=== PATIENT | female | born 1965 | race Caucasian/White ===

== ENCOUNTER 2020-09-22 13:26 | Emergency (ER) | payer OTHER, MEDICAID ==
[~2020-09-22] VITALS: Ht 180.3 cm; Wt 68.0 kg
[2020-09-22 13:37] VITALS: BP_SYST 149
[2020-09-22] MEDS ORDERED: IV NORMAL SALINE 1,000ML 1,000 ML IV ONE (14:00)
[2020-09-22] MEDS ORDERED: CONTRAST GIVEN. MC PRN (14:15)
[2020-09-22] MEDS ORDERED: IOHEXOL 300 MG/ML 75 ML VIAL. IV ONE (14:15)
[2020-09-22 14:22] LABS: BASO % 0 % (0-3); EOS # 0.1 x10^3/uL (0.0-0.7); EOS % 1 % (0-3); HEMATOCRIT 37.6 % (36.0-47.0); HEMOGLOBIN 12.6 g/dL (12.0-15.5); LYMPH # 0.8 x10^3/uL (1.0-4.8); LYMPH % 9 % (24-48); MEAN CORPUSCULAR HEMOGLOBIN 33 pg (25-35); MEAN CORPUSCULAR HGB CONC 33 g/dL (31-37); MEAN CORPUSCULAR VOLUME 98 fL (79-100); MONO # 1.2 x10^3/uL (0.0-1.1); MONO % 13 % (0-9); NEUT # 7.1 x10^3uL (1.8-7.7); NEUT % 77 % (31-73); PLATELET COUNT 174 x10^3/uL (140-400); RED BLOOD COUNT 3.83 x10^6/uL (3.50-5.40); RED CELL DISTRIBUTION WIDTH 14.1 % (11.5-14.5); WHITE BLOOD COUNT 9.1 x10^3/uL (4.0-11.0)
[2020-09-22 14:31] LABS: CREATININE 1.3 mg/dL (0.6-1.0); GFR 42.8; POTASSIUM 3.8 mmol/L (3.5-5.1)
[2020-09-22 14:37] LABS: ALBUMIN 2.6 g/dL (3.4-5.0); ALBUMIN/GLOBULIN RATIO 0.5 (1.0-1.7); TOTAL BILIRUBIN 0.4 mg/dL (0.2-1.0); TOTAL PROTEIN 7.5 g/dL (6.4-8.2)
--- NOTE | 2020-09-22 14:54 | RAD ---
EXAM: Neck, chest, abdomen and pelvis CT with intravenous contrast. HISTORY: Neck pain. TECHNIQUE: Computed tomographic images of the neck, chest, abdomen and pelvis were obtained following the administration of intravenous contrast. Multiplanar reformatting was performed. *One or more of the following individualized dose reduction techniques were utilized for this examina tion: 1. Automated exposure control. 2. Adjustment of the mA and/or kV according to patient size. 3. Use of iterative reconstruction technique. COMPARISON: None. FINDINGS: Neck: There is a centrally necrotic mass within the left anterior lateral neck lateral to the common carotid artery measuring 4.0 cm in maximum dimension. There are a few nonspecific stranding cervical chain lymph nodes. The right submandibular gland is absent or nearly completely absent. There is calc ified atherosclerotic plaque involving the left carotid bulb, bilateral internal carotid arteries and right external carotid artery. This results in less than 50 percent stenosis. No thyroid nodule is s een. There is a right chest wall port catheter with the tip in the right atrium. There are metallic c lips are fiducials within the left thoracic inlet. There is a left apical mass or masslike consolidat ion with small amount of loculated pleural fluid measuring approximately 5.6 cm. This demonstrates sp iculated margins and surrounding groundglass and internal cystic or bronchiectatic changes. There are degenerative changes involving the cervical spine. This is associated with mild left foraminal steno sis at C3-C4 and mild right and moderate left foraminal stenosis at C5-C6. Chest: There is left hemithorax volume loss. There is aortic and aortic branch vessel atherosclerosis . The heart is normal in size. There are enlarged mediastinal lymph nodes. For reference purposes, th ere are precarinal lymph nodes measuring up to 1.5 cm. There is no pneumothorax. There is a 5.6 cm ma ss or masslike consolidation involving the anterior lateral right lower lobe. There is a similar-appe aring mass or masslike consolidation measuring 5.6 cm within the medial right middle lobe. There are additional multiple scattered pulmonary nodules and groundglass opacities, several which are spiculat ed. There is no suspicious osseous lesion. Abdomen and pelvis: No hepatic lesion is seen. The gallbladder is surgically absent. No pancreatic le thomas is seen. The spleen is normal in size. The adrenal glands are unremarkable. There is a small sim ple appearing right renal cyst. Follow up is not routinely performed for simple cysts. There is no ap pendicitis. There is no bowel obstruction. There is moderate colonic stool. There is distal colonic d iverticulosis. The bladder, uterus and adnexal regions are unremarkable. There is aortic and aortic b ranch vessel atherosclerosis. There is no lymphadenopathy. There is no suspicious osseous lesion. The re is lumbar hyperlordosis and there is grade 1 anterolisthesis of L5 on S1. IMPRESSION: 1. 4.0 cm centrally necrotic mass within the left neck swelling and mild deviation of the surrounding vascular structures. The imaging appearance favors a centrally necrotic pathologically enlarged lymp h node or lymph node conglomerate. There are postoperative changes involving the right neck. Correlat e with prior imaging and surgical history. 2. Left apical masslike consolidation with small loculated pleural fluid collection and internal cyst ic or bronchiectatic changes. This is associated with left hemithorax volume loss. There are adjacent metallic clips are fiducials. This may be due to known residual primary neoplasm or post treatment c hangkimberly. Correlate with surgical and oncologic history. 3. Multiple pulmonary masses and masslike opacities measuring up to 5.6 cm within the right lower and middle lobes. This includes both neoplastic and infectious etiologies. Once again, correlate with downey rgical and oncologic history. 4. Mediastinal lymphadenopathy. This may be reactive or metastatic. 5. Colonic diverticulosis. Electronically signed by: Sussy Boyce MD (09/22/2020 2:51 PM) [id number]
--- NOTE | 2020-09-22 15:41 | PHYS DOC ---
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 States she has had several rounds of chemo and radiation therapy, had stem cell therapy in 2012 . Started immunotherapy just recently first session was 03 September, second session was 17 September. Patient states since starting immunotherapy she feels off and on sensations as if her throat is going to close off and right upper quadrant abdominal pain that radiates to her left lower quadrant intermittently as well. Patient states when she does have pain it will be between a 4 and a 10/10 pain on a 1-10 pain scale. Patient denies any pain at this time. Patient states she is not short of breath, however she feels her throat is closing off and makes her feel short of breath sometimes. Patient states she becomes nauseated but has had no vomiting. Patient denies any recent fever or chills. Patient reports an allergy to hydrocodone. Patient states her only home medication is albuterol. Patient states she is a cigarette smoker, denies EtOH or illicit drug use. Patient reports she is a patient of Dr. Snowden from [facility] oncology specialty. Patient currently denies any symptoms. Patient states that her talent acquisition specialist sent her to the emergency department for an evaluation for possible adverse reaction to her immunotherapy. (SCOT DANIEL APRN) Review of Systems Review of Systems 14 body systems of review of systems have been reviewed. See HPI for pertinent positives and negative responses, otherwise all other systems are negative, nonpertinent or noncontributory. (SCOT DANIEL APRN) Current Medications Current Medications Current Medications Medications (Trade) Dose Ordered Sig/Rubén Start Time Stop Time Status Last Admin Dose Admin Info (Do NOT chart on this entry -- for MONITORING) 1 each PRN DAILY PRN 09/22/20 14:15 09/24/20 14:14 Iohexol (Omnipaque 300 Mg/ml) 75 ml 1X ONCE 09/22/20 14:15 09/22/20 14:16 DC 09/22/20 14:16 75 ML Lorazepam (Ativan Inj) 1 mg 1X ONCE 09/22/20 14:00 09/22/20 14:08 DC 09/22/20 14:00 1 MG Sodium Chloride 1,000 ml @ 1,000 mls/hr 1X ONCE 09/22/20 14:00 09/22/20 15:00 DC 09/22/20 14:30 1,000 MLS/HR (SCOT DANIEL APRN) Allergies Allergies Allergies Coded Allergies Type Severity Reaction Last Updated Verified latex Allergy Severe 09/22/20 Yes hydrocodone Allergy Intermediate 09/22/20 Yes (SCOT DANIEL APRN) Physical Exam Physical Exam Constitutional: Well developed, well nourished, no acute distress, non-toxic appearance. 55-year-old female in no apparent distress. HENT: Normocephalic, atraumatic, bilateral external ears normal, oropharynx moist, no oral exudates, nose normal. Oropharynx moist, pink, no deep tissue infectious process appreciated, no laryngeal edema, no uvular edema, no lymphadenopathy of the head or neck appreciated, there is a mass on the left anterior neck between anterior cervical nodes and trachea. Patient airway is patent. There is no drooling, no trismus appreciated. Eyes: PERRLA, EOMI, conjunctiva normal, no discharge. Neck: Normal range of motion, no tenderness, supple, no stridor. Mass to left anterior neck. Cardiovascular:Heart rate regular rhythm, no murmur, heart sounds S1-S2 to auscultation. Lungs & Thorax: Bilateral breath sounds clear to auscultation no adventitious lung sounds appreciated. Abdomen: Bowel sounds normal, soft, no tenderness, no masses, no pulsatile masses. No bruising or ecchymotic areas of the abdomen appreciated. Skin: Warm, dry, no erythema, no rash. Back: No tenderness, no CVA tenderness. Extremities: No tenderness, no cyanosis, no clubbing, ROM intact, no edema. Neurologic: Alert and oriented X 3, normal motor function, normal sensory function, no focal deficits noted. Psychologic: Affect normal, judgement normal, mood normal. (SCOT DANIEL APRN) Current Patient Data Vital Signs Vital Signs Date Time Temp Pulse Resp B/P (MAP) Pulse Ox O2 Delivery O2 Flow Rate FiO2 09/22/20 13:37 97.4 102 15 149/ 93 Room Air Lab Results Laboratory Tests Test 09/22/20 14:15 White Blood Count 9.1 x10^3/uL Red Blood Count 3.83 x10^6/uL Hemoglobin 12.6 g/dL Hematocrit 37.6 % Mean Corpuscular Volume 98 fL Mean Corpuscular Hemoglobin 33 pg Mean Corpuscular Hemoglobin Concent 33 g/dL Red Cell Distribution Width 14.1 % Platelet Count 174 x10^3/uL Neutrophils (%) (Auto) 77 % Lymphocytes (%) (Auto) 9 % Monocytes (%) (Auto) 13 % Eosinophils (%) (Auto) 1 % Basophils (%) (Auto) 0 % Neutrophils # (Auto) 7.1 x10^3uL Lymphocytes # (Auto) 0.8 x10^3/uL Monocytes # (Auto) 1.2 x10^3/uL Eosinophils # (Auto) 0.1 x10^3/uL Basophils # (Auto) 0.0 x10^3/uL Sodium Level 137 mmol/L Potassium Level 3.8 mmol/L Chloride Level 103 mmol/L Carbon Dioxide Level 29 mmol/L Anion Gap 5 Blood Urea Nitrogen 33 mg/dL Creatinine 1.3 mg/dL Estimated GFR (Cockcroft-Gault) 42.8 BUN/Creatinine Ratio 25 Glucose Level 116 mg/dL Calcium Level 9.0 mg/dL Total Bilirubin 0.4 mg/dL Aspartate Amino Transf (AST/SGOT) 22 U/L Alanine Aminotransferase (ALT/SGPT) 25 U/L Alkaline Phosphatase 92 U/L Total Protein 7.5 g/dL Albumin 2.6 g/dL Albumin/Globulin Ratio 0.5 Lipase 83 U/L Current Medications Medications (Trade) Dose Ordered Sig/Rubén Route PRN Reason Start Time Stop Time Status Last Admin Dose Admin Sodium Chloride 1,000 ml @ 1,000 mls/hr 1X ONCE IV 09/22/20 14:00 09/22/20 15:00 DC 09/22/20 14:30 1,000 MLS/HR Lorazepam (Ativan Inj) 1 mg 1X ONCE IVP 09/22/20 14:00 09/22/20 14:08 DC 09/22/20 14:00 1 MG Iohexol (Omnipaque 300 Mg/ml) 75 ml 1X ONCE IV 09/22/20 14:15 09/22/20 14:16 DC 09/22/20 14:16 75 ML Info (Do NOT chart on this entry -- for MONITORING) 1 each PRN DAILY PRN MC SEE COMMENTS 09/22/20 14:15 09/24/20 14:14 Laboratory Tests Test 09/22/20 14:15 White Blood Count 9.1 x10^3/uL (4.0-11.0) Red Blood Count 3.83 x10^6/uL (3.50-5.40) Hemoglobin 12.6 g/dL (12.0-15.5) Hematocrit 37.6 % (36.0-47.0) Mean Corpuscular Volume 98 fL (79-100) Mean Corpuscular Hemoglobin 33 pg (25-35) Mean Corpuscular Hemoglobin Concent 33 g/dL (31-37) Red Cell Distribution Width 14.1 % (11.5-14.5) Platelet Count 174 x10^3/uL (140-400) Neutrophils (%) (Auto) 77 % (31-73) H Lymphocytes (%) (Auto) 9 % (24-48) L Monocytes (%) (Auto) 13 % (0-9) H Eosinophils (%) (Auto) 1 % (0-3) Basophils (%) (Auto) 0 % (0-3) Neutrophils # (Auto) 7.1 x10^3uL (1.8-7.7) Lymphocytes # (Auto) 0.8 x10^3/uL (1.0-4.8) L Monocytes # (Auto) 1.2 x10^3/uL (0.0-1.1) H Eosinophils # (Auto) 0.1 x10^3/uL (0.0-0.7) Basophils # (Auto) 0.0 x10^3/uL (0.0-0.2) Sodium Level 137 mmol/L (136-145) Potassium Level 3.8 mmol/L (3.5-5.1) Chloride Level 103 mmol/L (98-107) Carbon Dioxide Level 29 mmol/L (21-32) Anion Gap 5 (6-14) L Blood Urea Nitrogen 33 mg/dL (7-20) H Creatinine 1.3 mg/dL (0.6-1.0) H Estimated GFR (Cockcroft-Gault) 42.8 BUN/Creatinine Ratio 25 (6-20) H Glucose Level 116 mg/dL (70-99) H Calcium Level 9.0 mg/dL (8.5-10.1) Total Bilirubin 0.4 mg/dL (0.2-1.0) Aspartate Amino Transferase (AST) 22 U/L (15-37) Alanine Aminotransferase (ALT) 25 U/L (14-59) Alkaline Phosphatase 92 U/L (46-116) Total Protein 7.5 g/dL (6.4-8.2) Albumin 2.6 g/dL (3.4-5.0) L Albumin/Globulin Ratio 0.5 (1.0-1.7) L Lipase 83 U/L (73-393) (SCOT DANIEL APRN) EKG EKG [] (SCOT DANIEL APRN) Radiology/Procedures Radiology/Procedures PATIENT: KAY MARIEOUNT: [id number] : 1965 LOCATION: ER AGE: 55 SEX: F EXAM STATUS: REG ER ORD. PHYSICIAN: SCOT DANIEL APRN REASON: ANTERIOR LOWER NECK DISCOMFORT, CHOKING SENSATION PROCEDURE: CT NECK CHEST ABD PELVIS W CON EXAM: Neck, chest, abdomen and pelvis CT with intravenous contrast. HISTORY: Neck pain. TECHNIQUE: Computed tomographic images of the neck, chest, abdomen and pelvis were obtained following the administration of intravenous contrast. Multiplanar reformatting was performed. *One or more of the following individualized dose reduction techniques were utilized for this examination: 1. Automated exposure control. 2. Adjustment of the mA and/or kV according to patient size. 3. Use of iterative reconstruction technique. COMPARISON: None. FINDINGS: Neck: There is a centrally necrotic mass within the left anterior lateral neck lateral to the common carotid artery measuring 4.0 cm in maximum dimension. There are a few nonspecific stranding cervical chain lymph nodes. The right submandibular gland is absent or nearly completely absent. There is calcified atherosclerotic plaque involving the left carotid bulb, bilateral internal carotid arteries and right external carotid artery. This results in less than 50 percent stenosis. No thyroid nodule is seen. There is a right chest wall port catheter with the tip in the right atrium. There are metallic clips are fiducials within the left thoracic inlet. There is a left apical mass or masslike consolidation with small amount of loculated pleural fluid measuring approximately 5.6 cm. This demonstrates spiculated margins and surrounding groundglass and internal cystic or bronchiectatic changes. There are degenerative changes involving the cervical spine. This is associated with mild left foraminal stenosis at C3-C4 and mild right and moderate left foraminal stenosis at C5-C6. Chest: There is left hemithorax volume loss. There is aortic and aortic branch vessel atherosclerosis. The heart is normal in size. There are enlarged mediastinal lymph nodes. For reference purposes, there are precarinal lymph nodes measuring up to 1.5 cm. There is no pneumothorax. There is a 5.6 cm mass or masslike consolidation involving the anterior lateral right lower lobe. There is a similar-appearing mass or masslike consolidation measuring 5.6 cm within the medial right middle lobe. There are additional multiple scattered pulmonary nodules and groundglass opacities, several which are spiculated. There is no suspicious osseous lesion. Abdomen and pelvis: No hepatic lesion is seen. The gallbladder is surgically absent. No pancreatic lesion is seen. The spleen is normal in size. The adrenal glands are unremarkable. There is a small simple appearing right renal cyst. Follow up is not routinely performed for simple cysts. There is no appendicitis. There is no bowel obstruction. There is moderate colonic stool. There is distal colonic diverticulosis. The bladder, uterus and adnexal regions are unremarkable. There is aortic and aortic branch vessel atherosclerosis. There is no lymphadenopathy. There is no suspicious osseous lesion. There is lumbar hyperlordosis and there is grade 1 anterolisthesis of L5 on S1. IMPRESSION: 1. 4.0 cm centrally necrotic mass within the left neck swelling and mild deviation of the surrounding vascular structures. The imaging appearance favors a centrally necrotic pathologically enlarged lymph node or lymph node conglomerate. There are postoperative changes involving the right neck. Correlate with prior imaging and surgical history. 2. Left apical masslike consolidation with small loculated pleural fluid collection and internal cystic or bronchiectatic changes. This is associated with left hemithorax volume loss. There are adjacent metallic clips are fiducials. This may be due to known residual primary neoplasm or post treatment changes. Correlate with surgical and oncologic history. 3. Multiple pulmonary masses and masslike opacities measuring up to 5.6 cm within the right lower and middle lobes. This includes both neoplastic and infectious etiologies. Once again, correlate with surgical and oncologic history. 4. Mediastinal lymphadenopathy. This may be reactive or metastatic. 5. Colonic diverticulosis. Electronically signed by: Sussy Zapata MD (09/22/2020 2:51 PM) [id number] DICTATED AND SIGNED BY: SUSSY ZAPATA MD DATE: 09/22/20 1438 CC: SCOT DANIEL APRN; JUTSORAFAL Amanda ~MTH0 0 (SCOT DANIEL APRN) Heart Score C/O Chest Pain: No Risk Factors: Risk Factors: DM, Current or recent (<one month) smoker, HTN, HLP, family history of CAD, obesity. Risk Scores: Risk Factors: DM, Current or recent (<one month) smoker, HTN, HLP, family history of CAD, obesity. (SCOT DANIEL APRN) Course & Med Decision Making Course & Med Decision Making Pertinent Labs and Imaging studies reviewed. (See chart for details) 55-year-old female presents to the emergency department concerning "I think I am having a reaction to my immunotherapy treatments ". patient's physical examination unremarkable for acute process, however per patient report, patient has long history of Hodgkin's lymphoma, mouth cancer with neck mets, is currently being treated by Dr. Snowden talent acquisition specialist at [facility]. Related to patient's symptoms will perform CT soft tissue neck abdomen and pelvis. Will draw CBC, BMP, lipase. The patient states she does feel anxious, 1 mg IV Ativan ordered along with 1 L normal saline. Patient is lab unremarkable, the patient is not neutropenic. airframe and powerplant technician called to advise seeing a mass in patient's lungs, added CT chest with IV contrast. Patient had no previous CT imaging to compare, CT imaging concerning findings in throat, chest, and abdomen. Reviewed CT imaging report with patient who states she believes the concerning findings in her chest and lung areas are new. Reevaluation of the patient, patient states she feels much better and is symptom-free. Patient states the Ativan helped her tremendously. I called and discussed patient case with DR. SNOWDEN'S nurse Peace RN who requested imaging be placed on the cloud for review, Peace DURAN stated she would call patient later today or tomorrow for a sooner appointment. Patient has an appointment scheduled in her oncology office scheduled for 2 weeks currently. Called radiology department to have CT imaging placed on cloud for oncology review. Patient gave verbal understanding of discharge home instructions, follow-up with oncology today or tomorrow, return to ER precautions and concerns, patient states she feels much better and is ready to go home, patient was discharged home without incident. (SCOT DANIEL APRN) Dragon Disclaimer Dragon Disclaimer This electronic medical record was generated, in whole or in part, using a voice recognition dictation system. (SCOT DANIEL APRN) Departure Departure: Impression: Primary Impression: Adverse drug reaction Additional Impression: Abnormal CT scan Disposition: 01 HOME / SELF CARE / HOMELESS Condition: GOOD Referrals: RAFAL KEMP (PCP) Additional Instructions: You are seen today in the emergency department concerning adverse reaction to your immunotherapy treatments. You were treated with 1 mg Ativan intravenously, this seemed to help you as you state you are now symptom-free. A CT with contrast was performed of your neck chest abdomen and pelvis. I reviewed these findings with both you and your oncologist nurse RENEE Cantu who states that she will call you either later today or tomorrow for a sooner appointment. Please keep this appointment with your oncologist. Return to the emergency department for worsening symptoms or other concerns. EMERGENCY DEPARTMENT GENERAL DISCHARGE INSTRUCTIONS Thank you for coming to [facility] (ED) today and trusting us with you care. We trust that you had a positivie experience in our Emergency Department. If you wish to speak to the department management, you may call the director at [phone]. YOUR FOLLOW UP INSTRUCTIONS ARE FOLLOWS: 1. Do you have a private Doctor? If you do not have a private doctor, please ask for a resource list of physicians or clinics that may be able to assist you with follow up care. 2. The Emergency Physician has interpreted your x-rays. The X-Ray specialist will also review them. If there is a change in the findings, you will be notified in 48 hours when at all possible. 3. A lab test or culture has been done, your results will be reviewed and you will be notified if you need a change in treatment. ADDITIONAL INSTRUCTIONS AND INFORMATION: 1. Your care today has been supervised by a physician who is specially trained in emergency care. Many problems require more than one evaluation for a complete diagnosis and treatment. We recommend that you schedule your follow up appointment as recommended to ensure complete treatment of you illness or injury. If you are unable to obtain follow up care and continue to have a problem, or if your condition worsens, we recommend that you return to the ED. 2. We are not able to safely determine your condition over the phone nor are we able to give sound medical advice over the phone. For these safety reasons, if you call for medical advice we will ask you to come to the ED for further evaluation. 3. If you have any questions regarding these discharge instructions please call the ED at [phone]. SAFETY INFORMATION: In the interest of safety, wellness, and injury prevention; we encourage you to wear your sealbelt, if you smoke; quite smoking, and we encourage family to use a protective helmet for bicycling and other sporting events that present an increased risk for head injury. IF YOUR SYMPTOMS WORSEN OR NEW SYMPTOMS DEVELOP, OR YOU HAVE CONCERNS ABOUT YOUR CONDITION; OR IF YOUR CONDITION WORSENS WHILE YOU ARE WAITING FOR YOUR FOLLOW UP APPOINTMENT; EITHER CONTACT YOUR PRIMARY CARE DOCTOR, THE PHYSICIAN WHOSE NAME AND NUMBER YOU WERE GIVEN, OR RETURN TO THE ED IMMEDIATELY. Attending Signature Attending Signature I have reviewed the PA/NUCLEAR EQUIPMENT SALES ENGINEER's note and plan of care. I was available for consultation as needed during the patient's visit in the emergency department. I agree with the clinical impression, plan, and disposition. (SCOT REYES DO) Problem Qualifiers Primary Impression: Adverse drug reaction Encounter type: initial encounter Qualified Codes: T50.905A - Adverse effect of unspecified drugs, medicaments and biological substances, initial encounter SCOT DANIEL APRN September 22, 2020 15:41 SCOT REYES DO September 22, 2020 17:58
== END 2020-09-22 16:07 | disposition home or self-care (01) ==
LOC: ER 13:26
DX: R10.11 Right upper quadrant pain (principal); T50.Z95A Adverse effect of other vaccines and biological substances, initial encounter; R94.8 Abnormal results of function studies of other organs and systems; F17.210 Nicotine dependence, cigarettes, uncomplicated; Z85.71 Personal history of Hodgkin lymphoma; Z91.040 Latex allergy status; Z88.5 Allergy status to narcotic agent; Y92.89 Other specified places as the place of occurrence of the external cause
CPT/HCPCS: 36415; 70491; 71260; 74177; 80053; 83690; 85025; 96361; 96374; 99285; J2060; J7030; Q9967

== ENCOUNTER 2021-01-21 11:01 | Emergency (ER) | payer OTHER, MEDICAID ==
[~2021-01-21] VITALS: Ht 180.3 cm; Wt 65.0 kg
--- NOTE | 2021-01-21 11:39 | PHYS DOC ---
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 Patient has had a tongue resection approximately a year ago and had been on radiation treatment until a month ago. She attempted immunotherapy, but has been taken off this. She is currently been on a 3 drug chemotherapy regimen. Last dose of chemo was on Monday of last week. She states that her chemo regimen is causing her to have blisters and sores all over her body. Over the past couple of days she has had progressive difficulty swallowing. Now unable to keep down fluids. She also noted a voice change on Monday following her chemotherapy. She feels like it is more difficult to breathe and she has to sit upright to maintain ease of breathing. She is concerned that she may have had "low-grade fevers", but has not checked her temperature. Follows with an oncologist, Dr. Reyna, at [facility]. Review of Systems: Review of Systems: Constitutional: Denies fever or chills Eyes: Denies change in visual acuity HENT: Denies nasal congestion or sore throat Respiratory: Denies cough or shortness of breath Cardiovascular: Denies chest pain or edema GI: Denies abdominal pain, nausea, vomiting, bloody stools or diarrhea : Denies dysuria Musculoskeletal: Denies back pain or joint pain Integument: Denies rash Neurologic: Denies headache, focal weakness or sensory changes Endocrine: Denies polyuria or polydipsia Lymphatic: Denies swollen glands Psychiatric: Denies depression or anxiety Allergies: Allergies: Allergies Coded Allergies Type Severity Reaction Last Updated Verified latex Allergy Severe 09/22/20 Yes hydrocodone Allergy Intermediate 09/22/20 Yes Physical Exam: PE: Constitutional: Well developed, well nourished, no acute distress, non-toxic appearance. [] HENT: Hyperpigmentation of the skin on the anterior neck. Tenderness bilaterally in the cervical area with a mass that may be lymph nodes versus separate mass. She has mild inspiratory stridor. [] Cardiovascular:Heart rate regular rhythm, no murmur [] Lungs & Thorax: Bilateral breath sounds clear to auscultation [] Abdomen: Bowel sounds normal, soft, no tenderness, no masses, no pulsatile masses. [] Skin: Warm, dry, no erythema, no rash. [] Back: No tenderness, no CVA tenderness. [] Extremities: No tenderness, no cyanosis, no clubbing, ROM intact, no edema. [] Neurologic: Alert and oriented X 3, normal motor function, normal sensory function, no focal deficits noted. [] Psychologic: Affect normal, judgement normal, mood normal. [] Current Patient Data: Vital Signs: Vital Signs Date Time Temp Pulse Resp B/P (MAP) Pulse Ox O2 Delivery O2 Flow Rate FiO2 01/21/21 11:14 91 20 113/78 (90 92 Room Air EKG: EKG: [] Radiology/Procedures: Radiology/Procedures: [] Impressions: [place] [address] IMAGING REPORT Signed PATIENT: KAY MARIECCOUNT: [id number] : 1965 LOCATION: ER AGE: 55 SEX: F EXAM STATUS: REG ER ORD. PHYSICIAN: BONY MENDOZA MD REASON: head and neck cancer, now with inspiratory stridor, loss of voice PROCEDURE: CT SOFT TISSUE NECK W/CONTRAST Clinical indications:History of head and neck cancer. Now with inspiratory stridor and loss of voice. COMPARISON: September 22, 2020. Technique: After IV infusion of 75 cc of Omnipaque 300, ml of Isovue 370, helical CT scanning of the soft tissues of the neck was performed from the base of the skull down through the lung apices. Axial and coronal reconstructions were generated and reviewed on a computer monitor. PQRS compliance Statement One or more of the following individualized dose reduction techniques were utilized for this study: 1. Automated exposure control 2. Adjustment of the mA and/or kV according to patient size 3. Use of iterative reconstruction technique Findings: Again seen is a large necrotic or cystic left lower neck mass. It appears less liquefied or cystic today. The greatest AP dimension is 3.8 cm and the greatest transverse dimension is 3.5 cm. It is slightly bigger in size in comparison to the previous study with AP and transverse dimensions of 3.6 cm and 3.3 cm respectively. This could be secondary to treatment in the interim. There are additional lymph nodes seen within the left side of the neck deep to the sternocleidomastoid muscle. There is one seen adjacent to the left IJ measuring 10 mm in size seen on series 2 and image 35. There is another one seen more superiorly and posterior to the left IJ measuring 6 mm in size. There is another one seen more inferiorly anterior to the IJ measuring 6 mm. This latter lymph node is stable. The other 2 lymph nodes appear new. The left IJ is narrowed and compressed by the lower left neck mass. No thyroid gland mass is seen. There is new finding of swelling of the epiglottis and aryepiglottic folds and new bilateral laryngeal edema with loss of the piriform sinuses on both sides. The parotid and left submandibular salivary glands are unremarkable. The right submandibular salivary gland appears surgically absent. Left apical lung infiltrate is again evident. There are new nodular lung infiltrates seen within both upper lobes when compared to the prior chest CT of September 22, 2020. No lytic process is seen. Impression: New laryngeal edema and epiglottitis. Mild increase in size of cystic necrotic mass in the left lower neck. It is less liquefied. This may be secondary to treatment in the interim. There are new small left cervical lymph nodes more superiorly. There is narrowing and compression of the left internal jugular vein from the mass. No change in left apical lung infiltrate. New groundglass nodular lung infiltrates within the upper lobes bilaterally. This could be secondary to metastatic disease or infectious/inflammatory disease or even Covid 19 pneumonia if there is a history of such.. FOR INTERNAL CODING PURPOSES Critical result: Finding of laryngeal edema and epiglottitis discussed with the emergency room physician Dr. Bony Mendoza at 01/21/2021 1:26 PM. RESULT CODE: (C) Electronically signed by: Jacobo Rincon MD (01/21/2021 1:40 PM) [id number] DICTATED AND SIGNED BY: JACOBO RINCON MD DATE: 01/21/21 1319 CC: BONY MENDOZA MD; RAFAL KEMP ~MTH0 0 Heart Score: C/O Chest Pain: No Risk Factors: Risk Factors: DM, Current or recent (<one month) smoker, HTN, HLP, family history of CAD, obesity. Risk Scores: Score 0 - 3: 2.5% MACE over next 6 weeks - Discharge Home Score 4 - 6: 20.3% MACE over next 6 weeks - Admit for Clinical Observation Score 7 - 10: 72.7% MACE over next 6 weeks - Early Invasive Strategies Course & Med Decision Making: Course & Med Decision Making Pertinent Labs and Imaging studies reviewed. (See chart for details) Patient 55-year-old female with advanced head and neck cancer s/p XRT and resection, currently on chemotherapy who presents with difficulty breathing, inability to swallow, and worsening neck pain over the past 6 days since her last chemotherapy treatment. On arrival is hemodynamically stable. Satting 92% on room air. She does have some mild inspiratory stridor, but is stable in an upright position. We will give dexamethasone 10 mg to help reduce edema and IV fluids for rehydration. We will obtain CT neck/soft tissues and basic labs. 1139 Labs show pancytopenia but no neutropenia. CT neck shows evidence of laryngeal and epiglottitis edema. Likely as result of XRT and/or chemotherapy at this time. Less likely infectious. She is stable on reassessment. Feel that she will require admission to facility for dehydration and airway monitoring. Given her head and neck cancer feel that the airway monitoring should take place in a facility that has ENT surgical capabilities. Her oncologist is through [facility], will discuss with their transfer center. Awaiting call back. 1456 Still awaiting call back from [facility]. She has remained stable thus far. Will start maintenance IVF and repeat dexamethasone 4mg. 1710 [facility] does not have beds available with airway monitoring capability. Attempting [facility] in [place] next. 1733 [facility] does not have available beds. [facility] did accept the patient for ED to ED transfer. Dr. Rodriguez who is the accepting doctor. They asked for an additional 4 mg of dexamethasone and a rapid Covid swab to be sent. These orders were placed. Arranging for transport. 180 Inge Disclaimer: Inge Disclaimer: This electronic medical record was generated, in whole or in part, using a voice recognition dictation system. Departure Departure: Impression: Primary Impression: Laryngeal edema Additional Impressions: Head and neck cancer Pancytopenia Hypokalemia Disposition: 02 SHORT TERM HOSPITAL Condition: GUARDED Referrals: RAFAL KEMP (PCP) BONY MENDOZA MD Jan 21, 2021 11:39
[2021-01-21] MEDS ORDERED: CONTRAST GIVEN. MC PRN (11:45)
[2021-01-21] MEDS ORDERED: IOHEXOL 300 MG/ML 75 ML VIAL. IV ONE (11:45)
[2021-01-21] MEDS ORDERED: IV NORMAL SALINE 1,000ML 1,000 ML IV ONE ×2 (12:00→17:15)
[2021-01-21] MEDS ORDERED: MORPHINE SULFATE 4 MG/ML DISP.SYRIN. IV ONE ×2 (12:00→17:15)
[2021-01-21] MEDS ORDERED: DEXAMETHASONE SOD PHOS 10 MG/ML VIAL. IVP ONE (12:00)
[2021-01-21 12:32] LABS: CALCIUM 8.6 mg/dL (8.5-10.1); CREATININE 0.8 mg/dL (0.6-1.0); POTASSIUM 3.3 mmol/L (3.5-5.1)
[2021-01-21 12:54] LABS: BASO % 1 % (0-3); EOS % 2 % (0-3); HEMOGLOBIN 10.8 g/dL (12.0-15.5); LYMPH # 0.3 x10^3/uL (1.0-4.8); LYMPH % 11 % (24-48); MEAN CORPUSCULAR HEMOGLOBIN 32 pg (25-35); MEAN CORPUSCULAR HGB CONC 33 g/dL (31-37); MEAN CORPUSCULAR VOLUME 97 fL (79-100); MONO # 0.2 x10^3/uL (0.0-1.1); MONO % 8 % (0-9); NEUT # 1.9 x10^3uL (1.8-7.7); NEUT % 78 % (31-73); PLATELET COUNT 41 x10^3/uL (140-400); RED BLOOD COUNT 3.38 x10^6/uL (3.50-5.40); RED CELL DISTRIBUTION WIDTH 13.9 % (11.5-14.5); WHITE BLOOD COUNT 2.5 x10^3/uL (4.0-11.0)
[2021-01-21 13:34] LABS: % BANDS 2 % (0-9); % EOS 1 % (0-5); % LYMPHS 14 % (24-48); % MONOS 7 % (0-10); % SEGS 76 % (35-66)
[2021-01-21 13:35] LABS: PLT ESTIMATE DECREASED (ADEQUATE)
--- NOTE | 2021-01-21 13:42 | RAD ---
Clinical indications:History of head and neck cancer. Now with inspiratory stridor and loss of voice. COMPARISON: September 22, 2020. Technique: After IV infusion of 75 cc of Omnipaque 300, ml of Isovue 370, helical CT scanning of the soft tissues of the neck was performed from the base of the skull down through the lung apices. Axial and coronal reconstructions were generated and reviewed on a computer monitor. PQRS compliance Statement One or more of the following individualized dose reduction techniques were utilized for this study: 1. Automated exposure control 2. Adjustment of the mA and/or kV according to patient size 3. Use of iterative reconstruction technique Findings: Again seen is a large necrotic or cystic left lower neck mass. It appears less liquefied or cystic today. The greatest AP dimension is 3.8 cm and the greatest transverse dimension is 3.5 cm. I t is slightly bigger in size in comparison to the previous study with AP and transverse dimensions of 3.6 cm and 3.3 cm respectively. This could be secondary to treatment in the interim. There are addit ional lymph nodes seen within the left side of the neck deep to the sternocleidomastoid muscle. There is one seen adjacent to the left IJ measuring 10 mm in size seen on series 2 and image 35. There is another one seen more superiorly and posterior to the left IJ measuring 6 mm in size. There is anothe r one seen more inferiorly anterior to the IJ measuring 6 mm. This latter lymph node is stable. The o ther 2 lymph nodes appear new. The left IJ is narrowed and compressed by the lower left neck mass. No thyroid gland mass is seen. There is new finding of swelling of the epiglottis and aryepiglottic fol ds and new bilateral laryngeal edema with loss of the piriform sinuses on both sides. The parotid and left submandibular salivary glands are unremarkable. The right submandibular salivary gland appears surgically absent. Left apical lung infiltrate is again evident. There are new nodular lung infiltrat es seen within both upper lobes when compared to the prior chest CT of September 22, 2020. No lytic process is seen. Impression: New laryngeal edema and epiglottitis. Mild increase in size of cystic necrotic mass in the left lower neck. It is less liquefied. This may be secondary to treatment in the interim. There are new small left cervical lymph nodes more superior ly. There is narrowing and compression of the left internal jugular vein from the mass. No change in left apical lung infiltrate. New groundglass nodular lung infiltrates within the upper l obes bilaterally. This could be secondary to metastatic disease or infectious/inflammatory disease or even Covid 19 pneumonia if there is a history of such.. FOR INTERNAL CODING PURPOSES Critical result: Finding of laryngeal edema and epiglottitis discussed with the emergency room physician Dr. Luis Armando weber at 01/21/2021 1:26 PM. RESULT CODE: (C) Electronically signed by: Titus Rincon MD (01/21/2021 1:40 PM) [id number]
[2021-01-21] MEDS ORDERED: DEXAMETHASONE SOD PHOS 4 MG/ML VIAL. IVP ONE ×2 (17:15→18:00)
[2021-01-21] MEDS ORDERED: DEXAMETHASONE SOD PHOS 10 MG/ML VIAL. ONE (17:18)
[2021-01-21] MEDS ORDERED: MORPHINE SULFATE 4 MG/ML DISP.SYRIN. ONE (17:18)
[2021-01-21 19:10] VITALS: BP 116/70
== END 2021-01-21 19:15 | disposition short-term general hospital (02) ==
LOC: ER 11:01
DX: J38.4 Edema of larynx (principal); J05.10 Acute epiglottitis without obstruction; D61.818 Other pancytopenia; E87.6 Hypokalemia; F17.210 Nicotine dependence, cigarettes, uncomplicated; Z86.19 Personal history of other infectious and parasitic diseases; Z85.118 Personal history of other malignant neoplasm of bronchus and lung; Z85.89 Personal history of malignant neoplasm of other organs and systems; Z90.49 Acquired absence of other specified parts of digestive tract; Z91.040 Latex allergy status; Z88.5 Allergy status to narcotic agent
CPT/HCPCS: 36415; 70491; 80048; 85007; 85025; 87426; 96361; 96374; 96375; 96376; 99285; C9803; J1100; J2270; J7030; Q9967; U0003